=== PATIENT | female | born 1945 | race Caucasian/White ===

== ENCOUNTER → 2020-01-10 | Outpatient (CLI) | payer BC, MEDICARE ==
[~2020-01-10] MED LIST: ALPR0.5T7 PO; FURO-93 PO; METH10TA2 PO; OXYC5TAB3 PO; POTA20TA14 PO
== END | disposition home or self-care (01) ==
LOC: CVU 08:32
PROVIDERS: ATTEND Internal Medicine Cardiovascular Disease
DX: I08.8 Other rheumatic multiple valve diseases (principal); I10 Essential (primary) hypertension
CPT/HCPCS: 93306; 93356